=== PATIENT | female | born 1995 | race African-American/Black ===

== ENCOUNTER 2017-12-22 09:20 | Emergency (ER) | payer OTHER ==
[~2017-12-22] VITALS: Ht 157.5 cm; Wt 81.7 kg
[~2017-12-22 09:20] MED LIST: NOHOMEMEDICATIONS; NORCO 5-325 TA1 EACH PO
[2017-12-22] MEDS ORDERED: KEFLEX500 M1 PO (09:57)
[2017-12-22 10:41] VITALS: BP 112/62
== END 2017-12-22 10:42 | disposition home or self-care (01) ==
LOC: ER 09:20
DX: T81.31XA Disruption of external operation (surgical) wound, not elsewhere classified, initial encounter (principal); F17.210 Nicotine dependence, cigarettes, uncomplicated